=== PATIENT | female | born 1930 | race Caucasian/White ===

== ENCOUNTER → 2016-12-08 | Outpatient (REF) | payer MEDICARE ==
[~2016-12-08] MED LIST: AMLO5TAB2 PO; ASPI81TA85 PO; ATOR1TAB21 PO; CLON-412 PO; COUM1TAB14 PO; DRIS50002 PO; HYDR-2808 PO; HYDR25TAB PO; LOSA100T36 PO; MIRA3350 PO; OMEP40CA2 PO; REST0.05 OU; SENN8.6T7 PO; TYLE325T5 PO; WARF-18 PO
[2016-12-08 15:58] LABS: MEAN CORPUSCULAR HEMOGLOBIN 29.9 pg (27.0-33.0); MEAN CORPUSCULAR VOLUME 90.6 fl (80.0-96.0); RED CELL DISTRIBUTION WIDTH 13.8 % (11.5-14.5); WHITE BLOOD COUNT 7.2 K/mm3 (4.0-10.0)
[2016-12-08 16:03] LABS: ALBUMIN 4.3 GM/DL (3.2-5.2); ALBUMIN/GLOBULIN RATIO 1.34 (1.00-1.93); BILIRUBIN,TOTAL 1.2 MG/DL (0.2-1.0); CALCIUM LEVEL 9.3 MG/DL (8.8-10.2); CREATININE FOR GFR 1.35 MG/DL (0.55-1.02); GLOMERULAR FILTRATION RATE 39.5 (>32); POTASSIUM SERUM 3.9 MEQ/L (3.5-5.1); TOTAL PROTEIN 7.5 GM/DL (6.4-8.2)
== END ==
LOC: M SFHCPLAZ 11:50
PROVIDERS: ATTEND Internal Medicine
DX: E78.00 Pure hypercholesterolemia, unspecified (principal); D64.9 Anemia, unspecified; I10 Essential (primary) hypertension; E55.9 Vitamin D deficiency, unspecified

== ENCOUNTER → 2016-12-12 | Outpatient (REF) | payer MEDICARE | LOC: M SFHCPLAZ 08:55 | PROVIDERS: ATTEND Internal Medicine | DX: R30.0 Dysuria (principal); Z53.9 Procedure and treatment not carried out, unspecified reason ==

== ENCOUNTER → 2016-12-12 | Outpatient (REF) | payer MEDICARE | LOC: M SFHCPLAZ 11:49 | PROVIDERS: ATTEND Internal Medicine | DX: R30.0 Dysuria (principal) ==

== ENCOUNTER → 2016-12-24 | Outpatient (REF) | payer MEDICARE | LOC: M SFHCPLAZ 15:10 | PROVIDERS: ATTEND Nurse Practitioner Adult Health | DX: J02.9 Acute pharyngitis, unspecified (principal); R35.0 Frequency of micturition; Z79.899 Other long term (current) drug therapy | CPT/HCPCS: 87070; 87088; 87186; G0463 ==

== ENCOUNTER → 2017-01-08 | Outpatient (REF) | payer MEDICARE ==
[2017-01-08 13:12] LABS: CREATININE FOR GFR 1.26 MG/DL (0.55-1.02); GLOMERULAR FILTRATION RATE 42.8 (>32); POTASSIUM SERUM 3.8 MEQ/L (3.5-5.1)
[2017-01-08 13:20] LABS: BASO % 0.2 % (0.0-1.0); EOS % 0.9 % (0.0-3.0); LARGE UNSTAINED CELL # 0.2 K/mm3 (0.0-0.4); LYMPH # 1.8 K/mm3 (1.5-4.5); LYMPH % 30.9 % (24.0-44.0); MEAN CORPUSCULAR HEMOGLOBIN 30.7 pg (27.0-33.0); MEAN CORPUSCULAR HGB CONC 34.4 g/dl (32.0-36.5); MEAN CORPUSCULAR VOLUME 89.5 fl (80.0-96.0); MONO # 0.5 K/mm3 (0.0-0.8); MONO % 9.1 % (0.0-5.0); NEUTROPHILS # 2.9 K/mm3 (1.8-7.7); NEUTROPHILS % 55.8 % (36.0-66.0); PLATELET COUNT, AUTOMATED 180 k/mm3 (150-450); RED CELL DISTRIBUTION WIDTH 12.7 % (11.5-14.5); WHITE BLOOD COUNT 5.2 K/mm3 (4.0-10.0)
== END ==
LOC: M SFHCPLAZ 11:21
PROVIDERS: ATTEND Nurse Practitioner Family
DX: J06.9 Acute upper respiratory infection, unspecified (principal); R19.7 Diarrhea, unspecified
CPT/HCPCS: 80048; 85025; 87507; 87804; G0463

== ENCOUNTER → 2017-05-13 | Outpatient (REF) | payer MEDICARE ==
[2017-05-13 12:07] LABS: MEAN CORPUSCULAR HGB CONC 34.4 g/dl (32.0-36.5); MEAN CORPUSCULAR VOLUME 90.3 fl (80.0-96.0); RED CELL DISTRIBUTION WIDTH 12.8 % (11.5-14.5); WHITE BLOOD COUNT 5.8 K/mm3 (4.0-10.0)
[2017-05-13 12:42] LABS: ALBUMIN 3.6 GM/DL (3.2-5.2); ALBUMIN/GLOBULIN RATIO 1.13 (1.00-1.93); BILIRUBIN,TOTAL 0.6 MG/DL (0.2-1.0); CALCIUM LEVEL 9.1 MG/DL (8.8-10.2); CREATININE FOR GFR 1.22 MG/DL (0.55-1.02); GLOMERULAR FILTRATION RATE 44.4 (>32); POTASSIUM SERUM 3.7 MEQ/L (3.5-5.1); TOTAL PROTEIN 6.8 GM/DL (6.4-8.2)
== END ==
LOC: M SFHCPLAZ 07:00
PROVIDERS: ATTEND Internal Medicine
DX: D64.9 Anemia, unspecified (principal); I10 Essential (primary) hypertension

== ENCOUNTER → 2017-07-01 | Outpatient (REF) | payer MEDICARE | LOC: M SFHCPLAZ 12:06 | PROVIDERS: ATTEND Nurse Practitioner Adult Health | DX: R35.0 Frequency of micturition (principal) | CPT/HCPCS: 81001; 87088; 87186; G0463 ==

== ENCOUNTER → 2017-10-08 | Outpatient (REF) | payer MEDICARE | LOC: M LAB REF 15:40 | PROVIDERS: ATTEND Nurse Practitioner Adult Health | DX: J02.9 Acute pharyngitis, unspecified (principal) | CPT/HCPCS: 87081; 87880; G0463 ==

== ENCOUNTER → 2017-11-17 | Outpatient (REF) | payer MEDICARE ==
[2017-11-17 13:41] LABS: HEMATOCRIT 33.2 % (36.0-47.0); HEMOGLOBIN 10.9 g/dl (12.0-16.0); MEAN CORPUSCULAR HEMOGLOBIN 30.3 pg (27.0-33.0); MEAN CORPUSCULAR HGB CONC 32.8 g/dl (32.0-36.5); MEAN CORPUSCULAR VOLUME 92.2 fl (80.0-96.0); PLATELET COUNT, AUTOMATED 233 10^3/uL (150-450); RED CELL DISTRIBUTION WIDTH 13.2 % (11.5-14.5); WHITE BLOOD COUNT 7.1 10^3/uL (4.0-10.0)
[2017-11-17 14:11] LABS: ALBUMIN 3.9 GM/DL (3.2-5.2); ALBUMIN/GLOBULIN RATIO 1.15 (1.00-1.93); ALKALINE PHOSPHATASE 94 U/L (45-117); ALT/SGPT 20 U/L (12-78); ANION GAP 7 MEQ/L (8-16); AST/SGOT 20 U/L (7-37); BILIRUBIN,TOTAL 0.7 MG/DL (0.2-1.0); BLOOD UREA NITROGEN 37 MG/DL (7-18); CARBON DIOXIDE LEVEL 27 MEQ/L (21-32); CHLORIDE LEVEL 107 MEQ/L (98-107); CHOLESTEROL LEVEL 164 MG/DL (<200); CHOLESTEROL RISK RATIO 3.215 (<5); CREATININE FOR GFR 1.55 MG/DL (0.55-1.02); GLOMERULAR FILTRATION RATE 33.6 (>32); GLUCOSE, FASTING 101 MG/DL (83-110); HDL CHOLESTEROL 51 MG/DL (>40); LDL CHOLESTEROL 88.8 MG/DL (<100); MAGNESIUM LEVEL 2.1 MG/DL (1.8-2.4); NON-HDL-C 113 MG/DL; POTASSIUM SERUM 4.6 MEQ/L (3.5-5.1); SODIUM LEVEL 141 MEQ/L (136-145); TOTAL PROTEIN 7.3 GM/DL (6.4-8.2); TRIGLYCERIDES LEVEL 121 MG/DL (<150)
== END ==
LOC: M SFHCPLAZ 11:03
DX: D64.9 Anemia, unspecified (principal); I10 Essential (primary) hypertension; E78.00 Pure hypercholesterolemia, unspecified
CPT/HCPCS: 83735

== ENCOUNTER → 2018-05-17 | Outpatient (REF) | payer MEDICARE ==
[2018-05-17 12:23] LABS: HEMATOCRIT 32.9 % (36.0-47.0); MEAN CORPUSCULAR HEMOGLOBIN 31.4 pg (27.0-33.0); MEAN CORPUSCULAR HGB CONC 33.4 g/dl (32.0-36.5); PLATELET COUNT, AUTOMATED 250 10^3/uL (150-450); RED CELL DISTRIBUTION WIDTH 13.3 % (11.5-14.5); WHITE BLOOD COUNT 5.4 10^3/uL (4.0-10.0)
[2018-05-17 12:54] LABS: ALBUMIN 4.3 GM/DL (3.2-5.2); ALBUMIN/GLOBULIN RATIO 1.26 (1.00-1.93); ALKALINE PHOSPHATASE 91 U/L (45-117); ALT/SGPT 22 U/L (12-78); ANION GAP 9 MEQ/L (8-16); AST/SGOT 19 U/L (7-37); BILIRUBIN,TOTAL 1.1 MG/DL (0.2-1.0); BLOOD UREA NITROGEN 42 MG/DL (7-18); CALCIUM LEVEL 9.1 MG/DL (8.8-10.2); CARBON DIOXIDE LEVEL 24 MEQ/L (21-32); CHLORIDE LEVEL 111 MEQ/L (98-107); CREATININE FOR GFR 1.42 MG/DL (0.55-1.30); GLOMERULAR FILTRATION RATE 37.2 (>32); GLUCOSE, FASTING 94 MG/DL (70-100); MAGNESIUM LEVEL 2.5 MG/DL (1.8-2.4); POTASSIUM SERUM 4.2 MEQ/L (3.5-5.1); SODIUM LEVEL 144 MEQ/L (136-145); TOTAL PROTEIN 7.7 GM/DL (6.4-8.2)
[2018-05-17 13:14] LABS: PTH INTACT 86.4 PG/ML (18.5-88.0)
== END ==
LOC: M SFHCPLAZ 10:18
DX: D64.9 Anemia, unspecified (principal); I12.9 Hypertensive chronic kidney disease with stage 1 through stage 4 chronic kidney disease, or unspecified chronic kidney disease; N18.3 Chronic kidney disease, stage 3 (moderate)
CPT/HCPCS: 83735

== ENCOUNTER → 2018-11-17 | Outpatient (REF) | payer MEDICARE ==
[~2018-11-17] MED LIST changes: -AMLO5TAB2 PO; +AMLO5TAB6 PO; -DRIS50002 PO; +DRIS50003 PO; -LOSA100T36 PO; +LOSA100T50 PO
[2018-11-17 15:56] LABS: ALBUMIN 4.3 GM/DL (3.2-5.2); BILIRUBIN,TOTAL 0.6 MG/DL (0.2-1.0); CALCIUM LEVEL 9.7 MG/DL (8.8-10.2); CHOLESTEROL RISK RATIO 3.361 (<5); CREATININE FOR GFR 1.5 MG/DL (0.55-1.30); GLOMERULAR FILTRATION RATE 34.8 (>32); MAGNESIUM LEVEL 2.1 MG/DL (1.8-2.4); POTASSIUM SERUM 3.8 MEQ/L (3.5-5.1); TOTAL PROTEIN 7.7 GM/DL (6.4-8.2)
[2018-11-17 16:05] LABS: PTH INTACT 83.9 PG/ML (18.5-88.0)
== END ==
LOC: M SFHCPLAZ 14:09
PROVIDERS: ATTEND Internal Medicine
DX: E78.00 Pure hypercholesterolemia, unspecified (principal); N18.3 Chronic kidney disease, stage 3 (moderate)
CPT/HCPCS: 36415; 80053; 80061; 83735; 83970; G0463

== ENCOUNTER → 2019-04-12 | Outpatient (CLI) | payer MEDICARE ==
[~2019-04-12] MED LIST changes: +CLON0.1D3 TD; +COZA100T2 PO; +HYDR-2541 PO; +LIPI20TA PO; +NORV5TAB PO; +PROHANCE 279.3MG/ML 15ML VIAL (A9576) As Ordered ONE; +SENN1TAB41 PO; -SENN8.6T7 PO; +TRAZ-252 PO; +VITA500045 PO
--- NOTE | 2019-04-12 17:54 | REP ---
MRI RIGHT LOWER LEG WITH AND WITHOUT CONTRAST: TECHNIQUE: Multiple sequences were obtained in the axial, coronal and sagittal planes prior to and following the intravenous administration of 6 mL ProHance. There is normal bone marrow signal, with no bone marrow edema or occult fracture. No bone lesion is seen of the tibia or fibula. Superficial ill-defined soft-tissue edema is seen circumferentially, more so inferiorly in the lower leg. No abnormal enhancement is seen in the tibia or fibula. No suspicious enhancing soft-tissue nodule is seen. IMPRESSION: Diffuse subcutaneous soft-tissue edema more so inferiorly in the right lower leg soft tissues. No suspicious lesion or enhancement in the soft-tissues or bones of the right lower leg. Electronically Signed by Damien Noriega MD 04/14/2019 08:46 A
== END ==
LOC: M RAD 14:40
PROVIDERS: ATTEND Internal Medicine Medical Oncology
DX: Z85.828 Personal history of other malignant neoplasm of skin (principal)
CPT/HCPCS: 73720; A9576

== ENCOUNTER → 2019-05-02 | Outpatient (CLI) | payer MEDICARE ==
[~2019-05-02] MED LIST changes: -PROHANCE 279.3MG/ML 15ML VIAL (A9576) As Ordered ONE
--- NOTE | 2019-05-02 12:29 | REP ---
Whole body radionuclide bone scan: The studies performed with intravenous infusion of MDP radiolabeled with 22 mCi of technetium 99m. There are no comparison studies. The patient has a history of right stella tibial squamous cell carcinoma. There is no increased uptake in the right or left tibia or fibula. The There is focal uptake at the thumb bases bilaterally, in the knees bilaterally and in the left tarsal ossicles. This is likely degenerative uptake. There is a focal uptake in the lumbar spine at the approximate L4 or L5 area. The uptake pattern is otherwise unremarkable. Impression: There is no increased uptake in the right tibia. There is focal uptake in the approximate L4 or L5 lumbar vertebra. Otherwise, there is a degenerative pattern of uptake as described. Electronically Signed by Damien Arenas MD 05/02/2019 12:21 P
== END ==
LOC: M RAD 08:01
PROVIDERS: ATTEND Internal Medicine Medical Oncology
DX: Z85.828 Personal history of other malignant neoplasm of skin (principal); M79.89 Other specified soft tissue disorders
CPT/HCPCS: 78306; A9503

== ENCOUNTER → 2019-05-18 | Outpatient (CLI) | payer MEDICARE ==
[~2019-05-18] MED LIST changes: +PROHANCE 279.3MG/ML 15ML VIAL (A9576) As Ordered ONE; +PROHANCE 279.3MG/ML 5ML VIAL (A9576) As Ordered ONE
--- NOTE | 2019-05-19 08:59 | REP ---
MRI lumbar spine without and with IV contrast: History: Lesion found on bone scan at L4-5. Comparison MRI study May 01, 2008. Comparison bone scan May 02, 2019. Technique: Sagittal and axial T1 and T2-weighted scans are acquired in the usual fashion with and without fat saturation. Sequences include spin echo, turbo spin-echo, and STIR imaging sequences. Contrast enhancement dose is 6 ml of intravenous ProHance. MRI findings: Cortical and medullary bone signal intensity are normal. There is no evidence of bony destructive lesion to suggest metastatic disease. There is fairly advanced degenerative disc disease at L3-4 and L4-5 with reactive marrow changes at these two levels. This is felt to account for the increased uptake on radionuclide bone scan. The degenerative spondylosis changes are more pronounced than they were in 2008 but not new. There are degenerative disc changes at L2-3 and L1-2 to a lesser extent. The tip of the conus medullaris is normal in position and appearance at L1. There is a grade 1 degenerative, 3 mm, spondylolisthesis at L4-5 due to degenerative disc and facet arthropathy. At L4-5, there is diffuse disc bulging. There is right-sided neural foraminal narrowing due to disc bulging and facet arthropathy. There is some ligamentum flavum hypertrophy as well but no central canal stenosis is seen. At L3-4, there is also a grade 1, 2 mm, degenerative spondylolisthesis. There is diffuse disc bulging at the L3-4 level which in combination with facet arthropathy and ligamentum flavum hypertrophy produce mild to moderate central canal stenosis. This is a new finding compared to 2008. There is mild bilateral neural foraminal narrowing at L3-4. L2-3, there is diffuse disc bulging. Moderate central canal stenosis is seen due to this in combination with ligamentum flavum and facet hypertrophy. There is left-sided neural foraminal narrowing L2-3 due to disc bulging and facet hypertrophy. At L1-2, there is ligamentum flavum and facet hypertrophy. Minimal disc bulging is seen. No central canal stenosis is noted. No neural foraminal encroachment is seen. At T12-L1 and the L5-S1 disc margins are unremarkable. There is a minimal facet hypertrophy bilaterally at L5-S1. Postcontrast images show some reactive contrast enhancement associated with the degenerative disc changes at L3-4 and to a lesser extent L4-5. No suspicious contrast enhancement is appreciated. Impression: Advanced degenerative spondylosis changes as described above. Reactive marrow changes on either side of the L3-4 and L4-5 disc. This is felt to account for the abnormal uptake on radionuclide bone scan. There is no evidence to suggest metastatic disease. Spinal stenosis is noted L3-4 and L2-3. Electronically Signed by Cortes Lombardo MD 05/19/2019 01:57 P
== END ==
LOC: M RAD 15:29
PROVIDERS: ATTEND Internal Medicine Medical Oncology
DX: M84.88 Other disorders of continuity of bone, other site (principal); M51.36 Other intervertebral disc degeneration, lumbar region; M51.26 Other intervertebral disc displacement, lumbar region; M47.816 Spondylosis without myelopathy or radiculopathy, lumbar region
CPT/HCPCS: 72158; A9576